=== PATIENT | male | born 1995 | race Caucasian/White ===

== ENCOUNTER 2017-12-01 09:13 | Emergency (ER) | payer BC ==
[~2017-12-01] VITALS: Ht 180.3 cm; Wt 78.2 kg
[2017-12-01 09:20] VITALS: Ht 180.3 cm; Wt 78.2 kg
[2017-12-01] MEDS ORDERED: ADDERALL 10 MG10 MG PO (09:22)
[2017-12-01 11:22] VITALS: BP 138/72
== END 2017-12-01 11:23 | disposition home or self-care (01) ==
LOC: D.ER 09:13
DX: S06.0X0A Concussion without loss of consciousness, initial encounter (principal); W19.XXXA Unspecified fall, initial encounter; Y93.89 Activity, other specified; Y92.012 Bathroom of single-family (private) house as the place of occurrence of the external cause